=== PATIENT | female | born 1935 | race Caucasian/White ===

== ENCOUNTER 2024-04-01 10:46 | Emergency (ER) | payer OTHER ==
[2024-04-01 11:14] VITALS: BP 132/68; PULSE 78; RESP 17; TEMP 97.9; BMI 29.2
[2024-04-01] MEDS ORDERED: ACETAMINOPHEN 325 MG TABLET (FP) PO ONE (11:30)
[2024-04-01] MEDS ORDERED: DIPHTH,PERTUSS(ACELL),TET 0.5 ML DISP.SYRIN IM ONE (11:30)
== END 2024-04-01 13:14 | disposition home or self-care (01) ==
LOC: JER 10:46
DX: S00.531A Contusion of lip, initial encounter (principal); W01.198A Fall on same level from slipping, tripping and stumbling with subsequent striking against other object, initial encounter
CPT/HCPCS: 70450-TC; 72125-TC; 82962; 93005; 93010; 99284-25

== ENCOUNTER 2025-01-20 11:12 | Emergency (ER) | payer OTHER ==
[2025-01-20 11:35] VITALS: RESP 18; BMI 24.5
[2025-01-20] MEDS ORDERED: DIPHTH,PERTUSS(ACELL),TET 0.5 ML DISP.SYRIN IM ONE (12:13)
[2025-01-20] MEDS: DIPHTH,PERTUSS(ACELL),TET 0.5 ML DISP.SYRIN IM ONE (12:40)
[2025-01-20 15:43] VITALS: TEMP 98.6
[2025-01-20 17:20] VITALS: BP 136/63; PULSE 92
== END 2025-01-20 17:20 | disposition home or self-care (01) ==
LOC: JER 11:12
PROC: 3E0234Z Introduction of Serum, Toxoid and Vaccine into Muscle, Percutaneous Approach (ICD-10-PCS; principal; 2025-01-20)
DX: S00.03XA Contusion of scalp, initial encounter (principal); S50.311A Abrasion of right elbow, initial encounter; S60.511A Abrasion of right hand, initial encounter; S80.211A Abrasion, right knee, initial encounter; Z23 Encounter for immunization; W10.9XXA Fall (on) (from) unspecified stairs and steps, initial encounter; Y92.129 Unspecified place in nursing home as the place of occurrence of the external cause; Y93.01 Activity, walking, marching and hiking
CPT/HCPCS: 70450-TC; 72125-TC; 90471; 90715; 99285-25